=== PATIENT | female | born 1940 | race Caucasian/White ===

== ENCOUNTER 2020-09-29 13:04 | Emergency (ER) | payer MEDICARE, OTHER ==
[~2020-09-29] VITALS: Ht 170.2 cm; Wt 73.9 kg
--- NOTE | 2020-09-29 13:29 | NUR ---
ELBA FROM HOME TO ER BED 5. AWAKE BUT LETHARGIC. NOT IN RESP DISTRESS. BROUGHT IN FOR ALTERED MENTAL STATUS. PER EMS REPORT, PT WAS CALLED IN BY A FRIEND WHOM THE DAUGHTER WHO LIVES IN [place] ASKED TO CHECK THE PATIENT. PER REPORT, PT WAS REPORTED NOT ACTING NORMALLY PER THE DAUGHTER. PT IS CONFUSED UPON PRESENTATION. NO NEURO DEFICIT NOTED. MD WAS AT THE BEDSIDE FOR EVAL. ORDERS RECEIVED, NOTED AND CARRIED OUT. IV LINE ESTABLISHED ON L HAND 22. EKG BEING DONE. PHLEB AT BEDSIDE FOR BLOOD DRAW
[2020-09-29] MEDS ORDERED: IV NS 0.9% 500 ML BAG IV ONE (13:30)
--- NOTE | 2020-09-29 13:46 | NUR ---
PT TO CT ON [facility]
[2020-09-29 13:49] LABS: BASOPHILS # (AUTO) 0.7 /CMM (0.0-0.2); BASOPHILS % (AUTO) 0.8 % (0.0-2.0); HEMATOCRIT 39 % (33-45); HEMOGLOBIN 11.9 g/dL (11.5-14.8); LYMPHOCYTES # (AUTO) 62.7 /CMM (0.8-4.8); LYMPHOCYTES % (AUTO) 79.6 % (20.0-44.0); MEAN CORPUSCULAR HGB CONC 31 g/dl (31.0-36.0); MEAN CORPUSCULAR VOLUME 86 fL (82-100); MONOCYTES # (AUTO) 1.3 /CMM (0.1-1.30); MONOCYTES % (AUTO) 1.7 % (2.0-12.0); NEUTROPHILS # (AUTO) 14.1 /CMM (1.8-8.9); NEUTROPHILS % (AUTO) 17.9 % (43.0-81.0); PLATELET COUNT (AUTO) 179 /CMM (150-450); RED BLOOD CELL COUNT(AUTO) 4.51 MIL/uL (4.0-5.2)
[2020-09-29 13:50] LABS: CALCIUM, SERUM 8.6 mg/dL (8.5-10.1); CREATININE 1.3 mg/dL (0.6-1.3); POTASSIUM 3.7 mmol/L (3.5-5.1)
[2020-09-29 13:53] LABS: WHITE BLOOD COUNT (AUTO) 78.8 K/uL (4.3-11.0)
[2020-09-29 14:04] LABS: ALBUMIN 2.8 g/dL (3.4-5.0); BILIRUBIN,DIRECT 0.3 mg/dL (0.0-0.2); BILIRUBIN,TOTAL 0.9 mg/dL (0.2-1.0); TOTAL PROTEIN, SERUM 6.9 g/dL (6.4-8.2)
[2020-09-29 14:13] LABS: THYROID STIMULATING HORMONE 0.319 uIU/mL (0.358-3.74)
[2020-09-29 14:14] LABS: BILIRUBIN,URINE Negative (NEGATIVE); COLOR,URINE YELLOW (YELLOW); LEUKOCYTE ESTERASE ,URINE Negative (NEGATIVE); NITRITE, URINE Negative (NEGATIVE); PH,URINE 5.5 (5.0-8.0); PROTEIN,URINE >=300 mg/dl (NEGATIVE); UGLUCOSE Negative (NEGATIVE); UROBILINOGEN,URINE 0.2 EU/dL (0.2)
--- NOTE | 2020-09-29 14:15 | NUR ---
urine obtained via in and out cath. strict sterile technique obaserved during the procedure.
[2020-09-29 14:17] LABS: BACTERIA,URINE Few /HPF (None Seen); SQUAMOUS EPITHELIAL CELL,UR Few /HPF (None Seen); URINE AMORPHOUS URATE Many /HPF (None Seen)
[2020-09-29] MEDS ORDERED: CEFTRIAXONE 1GM BAG (ER ONLY) 50 ML IV ONE ×2 (14:30→14:32)
[2020-09-29] MEDS ORDERED: AZITHROMYCIN 500 MG in IV D5W 250 ML IV ONE (14:30)
[2020-09-29] MEDS ORDERED: IV NS 0.9% 1,000 ML BAG IV ONE (14:30)
[2020-09-29] MEDS ORDERED: ACETAMINOPHEN 650 MG/SUPP.RECT RC ONE ×2 (15:09→16:00)
[2020-09-29 15:11] LABS: BAND % (MANUAL) 4 % (0.0-5.0); LYMPHOCYTES % (MANUAL) 78 % (16-48); MONOCYTES % (MANUAL) 3 % (0-11.0); NEUTROPHILS % (MANUAL) 15 (42-76)
[2020-09-29] MEDS ORDERED: DILT90TA2 PO (15:15)
[2020-09-29] MEDS ORDERED: OXYB10TA30 PO (15:15)
[2020-09-29] MEDS ORDERED: APIX2.5T PO (15:15)
[2020-09-29] MEDS ORDERED: ALLO100T PO (15:15)
[2020-09-29] MEDS ORDERED: PRAV10TA40 PO (15:15)
[2020-09-29] MEDS ORDERED: ZOLP5TAB8 PO (15:15)
--- NOTE | 2020-09-29 15:22 | NUR ---
pt noted with recatl temp of 104.3. md made aware. asked md for tylenol 1gm suppository. md ok and verbal order received.
--- NOTE | 2020-09-29 15:30 | NUR ---
pt placed on o2 simple face mask @ 8lpm d/t pt was noted satting 90% on RA. Pt is satting @ 98% after receiving o2. md del rosario
--- NOTE | 2020-09-29 16:40 | NUR ---
covid negative per lab
--- NOTE | 2020-09-29 16:48 | NUR ---
SPOKE WITH DAUGHTER AND UPDATES GIVEN. DAUGHTER IS AWARE THAT THE PATIENT IS GOING TO BE ADMITTED.
--- NOTE | 2020-09-29 16:50 | NUR ---
SPOKE WITH HUY TREJO CELERY TIER AND WAS INFORMED THAT PT IS TO BE TRANSFERRED TO [facility], PT'S DAUGHTER'S NUMBER WAS GIVEN TO CELERY TIER.
--- NOTE | 2020-09-29 16:57 | NUR ---
COVID RESULT FAXED TO [facility] ROOM ATTENDANT
--- NOTE | 2020-09-29 16:57 | NUR ---
HUY TREJO PRINTING WORKER SUPERVISOR - [phone]
--- NOTE | 2020-09-29 17:17 | NUR ---
MD AWARE THAT PT'S HR IS 140. NNO ORDER RECEIVED. WILL CONTINUE TO MONITOR PT.
[2020-09-29] MEDS ORDERED: DILTIAZEM HCL 25 MG IV ONE (17:44)
[2020-09-29] MEDS ORDERED: DILTIAZEM HCL 25 MG IV IV ONE (18:00)
--- NOTE | 2020-09-29 18:40 | NUR ---
ACCEPTED AT [facility] ACCEPTED BY DR BLANCO GOING TO RM 101 PENDING TRANSPORT INFO
--- NOTE | 2020-09-29 18:42 | NUR ---
# FOR REPORT [phone]
--- NOTE | 2020-09-29 18:50 | NUR ---
TRANSPORT ETA 2039. [facility]
--- NOTE | 2020-09-29 19:15 | NUR ---
PT AMBULATED WITH MIN ASSISTANCE TO BATHROOM.
--- NOTE | 2020-09-29 19:27 | NUR ---
MD MADE AWARE THAT DESPITE GIVING DILTIAZEM 20MG IVP X 1, PT'S HR IS STILL 140. WILL CONTINUE TO MONITOR
--- NOTE | 2020-09-29 20:03 | NUR ---
CALLED TO GIVE REPORT, NURSE WILL CALL BACK.
--- NOTE | 2020-09-29 20:24 | NUR ---
REPORT GIVEN SANDY VERA FOR [facility]GO AT [facility]
--- NOTE | 2020-09-29 21:04 | NUR ---
[facility] ETA 30 MINUTES
--- NOTE | 2020-09-29 21:15 | NUR ---
PT'S DAUGHTER, GRAETT, AWARE THAT THE PT IS GOING TO BE ADMITTED AT [facility]
--- NOTE | 2020-09-29 22:23 | NUR ---
[facility] DELAYED 30 MINUTES
--- NOTE | 2020-09-29 23:13 | NUR ---
[facility] # 122 AT BEDSIDE FOR PT TRANSPORT TO [facility] ON [address] WITH 2 EMT AND RN AT BEDSIDE. REPORT GIVEN TO EMELI, COST ACCOUNTING MANAGER. NAD NOTED DURING TRANSPORT
[2020-09-29 23:15] VITALS: BP 117/63
== END 2020-09-29 23:17 | disposition short-term general hospital (02) ==
LOC: ER 13:06
DX: J18.9 Pneumonia, unspecified organism (principal); E86.0 Dehydration; G93.40 Encephalopathy, unspecified; I48.91 Unspecified atrial fibrillation; D72.820 Lymphocytosis (symptomatic); R00.0 Tachycardia, unspecified; G30.9 Alzheimer's disease, unspecified; F02.80 Dementia in other diseases classified elsewhere, unspecified severity, without behavioral disturbance, psychotic disturbance, mood disturbance, and anxiety; Z79.899 Other long term (current) drug therapy; Z20.822 Contact with and (suspected) exposure to COVID-19
CPT/HCPCS: 36415; 70450; 71045; 80048; 80076; 81001; 82140; 83605; 84145; 84439; 84443; 84481; 84484; 85007; 85025; 85730; 87040 ×2; 87086; 87426; 93005; 96360; 96361; 96365; 96375 ×2; 99291; J0456; J0696; J3490; J7030; J7040; C9803; J7060